=== PATIENT | male | born 1960 | race Caucasian/White ===

== ENCOUNTER 2019-04-15 09:31 | Emergency (ER) | payer BC ==
[2019-04-15 09:41] VITALS: BP 165/111
[2019-04-15] MEDS ORDERED: Alum Hydrox/Mag Hydrox/Simeth 30 ML, Lidocaine 2% 15 ML PO ONE ×2 (09:54)
[2019-04-15] MEDS ORDERED: Aspirin 81 MG Tab.Chew PO ONE (09:54)
--- NOTE | 2019-04-15 09:54 | EDM.PDOC ---
ED HPI GENERAL MEDICAL PROBLEM - General Chief Complaint: Chest Pain Stated Complaint: CHEST PAIN,GAS,BOTH ARM PAIN Time Seen by Provider: 04/15/19 09:43 - History of Present Illness INITIAL COMMENTS - FREE TEXT/NARRATIVE: 58-year-old male presents emergency room with chest pain Patient had onset of chest pain shortly after 5 AM this morning at its worst he had some diaphoresis and bilateral arm pain. The pain was for the most part substernal. He does not describe oppressors sensation he had associated heartburn and he felt gassy.. Patient has no prior history of coronary artery disease no history of hypertension or hyperlipidemia. He does not smoke. He does not use illicit drugs or alcohol. Patient has not had heart problems in the past no history of chest discomfort. Epigastric Pain Score (Numeric/FACES): 6 - Related Data Allergies Allergy/AdvReac Type Severity Reaction Status Date / Time No Known Allergies Allergy Verified 04/15/19 09:41 Home Meds: Home Meds . [No Known Home Meds] 04/15/19 [History] ED ROS GENERAL - Review of Systems Review Of Systems: See Below Constitutional: Reports: No Symptoms. Denies: Fever, Chills HEENT: Reports: No Symptoms Respiratory: Reports: No Symptoms Cardiovascular: Reports: Chest Pain. Denies: Dyspnea on Exertion, Palpitations Endocrine: Reports: No Symptoms GI/Abdominal: Reports: No Symptoms : Reports: No Symptoms Neurological: Reports: No Symptoms ED EXAM, GENERAL - Physical Exam Exam: See Below Exam Limited By: No Limitations General Appearance: Alert, No Apparent Distress Head: Atraumatic, Normocephalic Neck: Normal Inspection, Supple, Non-Tender, Full Range of Motion Respiratory/Chest: No Respiratory Distress, Lungs Clear, Normal Breath Sounds Cardiovascular: Regular Rate, Rhythm, No Edema, No Murmur GI/Abdominal: Normal Bowel Sounds, Soft, Non-Tender Back Exam: Normal Inspection. No: CVA Tenderness (L), CVA Tenderness (R) Extremities: Normal Inspection, Non-Tender, No Pedal Edema Neurological: Alert, Oriented, Normal Cognition Course - Vital Signs Last Recorded V/S: Last Vital Signs Temp 36.9 C 04/15/19 09:39 Pulse 62 04/15/19 09:39 Resp 16 04/15/19 09:39 BP 165/111 H 04/15/19 09:39 Pulse Ox 98 04/15/19 09:39 - Orders/Labs/Meds Orders: Active Orders 24 hr Category Date Time Status EKG 12 Lead [EKG Documentation Completion] [RC] STAT Care 04/15/19 09:57 Active Labs: Laboratory Tests 04/15/19 04/15/19 04/15/19 Range/Units 09:45 09:45 09:45 WBC 5.81 (4.23-9.07) K/mm3 RBC 4.83 (4.63-6.08) M/mm3 Hgb 13.5 L (13.7-17.5) gm/L Hct 41.4 (40.1-51.0) % MCV 85.7 (79.0-92.2) fl MCH 28.0 (25.7-32.2) pg MCHC 32.6 (32.2-35.5) g/dl RDW Std Deviation 43.6 (35.1-43.9) fL Plt Count 261 (163-337) K/mm3 MPV 9.7 (9.4-12.3) fl Neutrophils % (Manual) 68 H (40-60) % Band Neutrophils % 0 (0-10) % Lymphocytes % (Manual) 21 (20-40) % Atypical Lymphs % 0 % Monocytes % (Manual) 4 (2-10) % Eosinophils % (Manual) 6 (0.8-7.0) % Basophils % (Manual) 1 (0.2-1.2) Platelet Estimate Adequate RBC Morph Comment Normal PT 10.0 (9.5-12.1) SECONDS INR < 0.93 APTT 27 (24-31) SECONDS Sodium 142 (136-145) mEq/L Potassium 4.2 (3.5-5.1) mEq/L Chloride 107 (98-107) mEq/L Carbon Dioxide 23 (21-32) mEq/L Anion Gap 16.2 H (5-15) BUN 15 (7-18) mg/dL Creatinine 1.1 (0.7-1.3) mg/dL Est Cr Clr Drug Dosing 69.63 mL/min Estimated GFR (MDRD) > 60 (>60) mL/min BUN/Creatinine Ratio 13.6 L (14-18) Glucose 117 H (74-106) mg/dL Calcium 9.1 (8.5-10.1) mg/dL Total Bilirubin 1.2 H (0.2-1.0) mg/dL AST 31 (15-37) U/L ALT 46 (16-63) U/L Alkaline Phosphatase 64 (46-116) U/L Troponin I < 0.017 (0.00-0.056) ng/mL Total Protein 8.0 (6.4-8.2) g/dl Albumin 4.6 (3.4-5.0) g/dl Globulin 3.4 gm/dL Albumin/Globulin Ratio 1.4 (1-2) 04/15/19 Range/Units 12:41 WBC (4.23-9.07) K/mm3 RBC (4.63-6.08) M/mm3 Hgb (13.7-17.5) gm/L Hct (40.1-51.0) % MCV (79.0-92.2) fl MCH (25.7-32.2) pg MCHC (32.2-35.5) g/dl RDW Std Deviation (35.1-43.9) fL Plt Count (163-337) K/mm3 MPV (9.4-12.3) fl Neutrophils % (Manual) (40-60) % Band Neutrophils % (0-10) % Lymphocytes % (Manual) (20-40) % Atypical Lymphs % % Monocytes % (Manual) (2-10) % Eosinophils % (Manual) (0.8-7.0) % Basophils % (Manual) (0.2-1.2) Platelet Estimate RBC Morph Comment PT (9.5-12.1) SECONDS INR APTT (24-31) SECONDS Sodium (136-145) mEq/L Potassium (3.5-5.1) mEq/L Chloride (98-107) mEq/L Carbon Dioxide (21-32) mEq/L Anion Gap (5-15) BUN (7-18) mg/dL Creatinine (0.7-1.3) mg/dL Est Cr Clr Drug Dosing mL/min Estimated GFR (MDRD) (>60) mL/min BUN/Creatinine Ratio (14-18) Glucose (74-106) mg/dL Calcium (8.5-10.1) mg/dL Total Bilirubin (0.2-1.0) mg/dL AST (15-37) U/L ALT (16-63) U/L Alkaline Phosphatase (46-116) U/L Troponin I < 0.017 (0.00-0.056) ng/mL Total Protein (6.4-8.2) g/dl Albumin (3.4-5.0) g/dl Globulin gm/dL Albumin/Globulin Ratio (1-2) Meds: Medications Discontinued Medications Generic Name Dose Route Start Last Admin Trade Name Marvin PRN Reason Stop Dose Admin Aspirin 324 mg 04/15/19 09:54 04/15/19 10:02 Aspirin PO 04/15/19 09:55 324 mg ONETIME ONE Administration Al Hydroxide/Mg Hydroxide 30 0 ml 04/15/19 09:54 04/15/19 10:03 ml/ Lidocaine HCl 15 ml PO 04/15/19 09:55 45 ml ONETIME ONE Administration - Re-Assessments/Exams Free Text/Narrative Re-Assessment/Exam: 04/15/19 12:14 Initial troponin negative this was drawn at 3 hours from the onset of chest pain. Patient is premix chest pain-free by the time he arrives here still having some upset stomach. Patient had chest pain diaphoresis and arm pain bilaterally when the pain was at its worst. I reviewed his heart score of 2 1 for risk factors remote history of the family member with heart disease and one point for his age. And discuss the follow-up for this. Patient with discussion would like to be discharged home Did also discuss that we can further lower his risk by checking a troponin and the patient is willing to do this. The troponin has been ordered. On exam his abdominal exam is unremarkable. But he did get some relief with a gassy sensation from the GI cocktail. 04/15/19 13:36 Second troponin is negative. We'll have him continue daily aspirin and follow up with his regular provider Departure - Departure Time of Disposition: 13:38 Disposition: Home, Self-Care 01 Clinical Impression: Chest pain Referrals: Melba Varghese [employer] [Primary Care Provider] - Forms: ED Department Discharge Additional Instructions: Treatment emergency room with any questions problems worsening symptoms. Take a baby aspirin, 81 mg, daily. 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 Follow-up in the clinic in one week for recheck - My Orders Last 24 Hours: My Active Orders 04/15/19 09:57 EKG 12 Lead [EKG Documentation Completion] [RC] STAT - Assessment/Plan Last 24 Hours: My Active Orders 04/15/19 09:57 EKG 12 Lead [EKG Documentation Completion] [RC] STAT
--- NOTE | 2019-04-15 11:16 | CR ---
Chest: Portable view of the chest was obtained. Comparison: Prior chest x-ray of 01/29/16. Heart is mildly enlarged. Tortuous thoracic aorta is seen. Pulmonary vessels are felt to be slightly congested which appear to be chronic. No acute parenchymal change is seen. Impression: 1. Findings as noted above. Nothing acute is appreciated. Diagnostic code #2
== END 2019-04-15 13:52 | disposition home or self-care (01) ==
LOC: JD.ED 09:31
DX: R07.2 Precordial pain (principal)
CPT/HCPCS: 36415; 71045; 80053; 84484; 85007; 85027; 85610; 85730; 93005; 99285; A9270